=== PATIENT | male | born 1960 | race Caucasian/White ===

== ENCOUNTER 2022-07-02 06:30 | Day surgery (SDC) | payer OTHER ==
[~2022-07-02] VITALS: Ht 182.9 cm; Wt 92.0 kg
--- NOTE | 2022-07-02 08:32 | NUR ---
07/02/22 0832 Abbey Stark 0828- PT ARRIVES TO PACU AWAKE AND TALKING. PT REPORTS NO PAIN OR NAUSEA. RESP EVEN AND UNLABORED. OXYGEN SAT MID 90'S ON 2L VIA CO2 NC.
--- NOTE | 2022-07-02 15:44 | OR ---
[facility] [address] [place], [place] [address] Signed DATE OF OPERATION: 07/02/2022 SURGEON: Mallory Fleming MD PREOPERATIVE DIAGNOSIS: Colon screening. POSTOPERATIVE DIAGNOSES: 1. Extensive sigmoid and left-sided diverticulosis. 2. Small polyps of the ileocecal valve area (excised). 3. Flat polyp and adjacent small polyp of the rectosigmoid. PROCEDURES: Total colonoscopy to cecum with cold morcellation polypectomy x3 and mucosal lift, snare polypectomy x1. ANESTHESIA: Intravenous sedation; fentanyl 150 mcg and Versed 7 mg. INDICATION: This 62-year-old white man is a patient of Dr. Solange Mitchell and known to me from the past having undergone colonoscopy in 2011, which showed diverticulosis. He is asymptomatic and has been referred for screening colonoscopy on the basis of time interval since last colonoscopy. He understands the risks of bleeding, infection, and perforation related to colonoscopy and wished to proceed. FINDINGS: The prep was excellent. Complete colonoscopy was undertaken of the cecum. There were two small polyps, one in the cecum and the other at the ileocecal valve, which were excised with cold morcellation technique. In the rectosigmoid was a very subtle flat polyp with an adjacent small sessile polyp. Those were excised with cold morcellation technique as well as mucosal lift cold snare polypectomy technique. There were no other findings of concern other than the diverticula. PROCEDURE IN DETAIL: The patient was brought to the endoscopy suite and placed in lateral decubitus position. Given intravenous sedation to the point of slurred speech and nystagmus with full cardiopulmonary monitoring. Digital rectal examination showed a normal prostate. An Olympus video colonoscope was passed in the rectum and manipulated into the sigmoid, Electronically Signed By: MALLORY FLEMING MD 07/02/22 1544 PATIENT NAME: DONNA DELATORRE OPERATIVE REPORT DATE OF : 60 REPORT #: [id number] PHYSICIAN: MALLORY FLEMING MD PCP: SOLANGE MITCHELL MD REPORT IS CONFIDENTIAL AND NOT TO BE RELEASED WITHOUT AUTHORIZATION [facility] [address] [place], [place] [address] Signed which showed numerous diverticula. The scope was advanced through the colon ultimately intubating the cecum itself. On the ileocecal valve a small sessile polyp, most likely adenomatous given its mucosal appearance, this was excised with cold morcellation technique. Another small adjacent polyp was similarly excised. The scope was withdrawn from that point. Examination showed no sign of abnormality other than scattered diverticula and more dense diverticula of the left colon and sigmoid. At the rectosigmoid was a subtle flat polyp, narrow band imaging help define this more fully. A mucosal lift technique with spot tattoo dye was used to elevate the mucosa, which was not especially forthcoming. The polyp was then excised with cold snare technique with additional cold morcellation obliteration as well. The adjacent small polyp was excised with cold morcellation technique along. Scope was withdrawn. Retroflexed view showed no other abnormality. The patient was taken to the recovery room in good condition having suffered no complication. CONCLUDING DIAGNOSES: Three small polyps excised by cold morcellation technique and a flat polyp of rectosigmoid by mucosal lift technique. PLAN: Recommend repeat colonoscopy within 1-2 years based on the flat polyp finding and depending on pathology report. A high-fiber diet is recommended on the basis of his diverticulosis. He will return to the ongoing care of Dr. Mitchell otherwise. MD JAYY Cherry/TOML /[id number] cc: Solange Mitchell MD Copies: SOLANGE MITCHELL MD ~ Electronically Signed By: MALLORY FLEMING MD 07/02/22 1544 PATIENT NAME: DONNA DELATORRE OPERATIVE REPORT DATE OF : 60 REPORT #: [id number] PHYSICIAN: MALLORY FLEMING MD PCP: SOLANGE MITCHELL MD REPORT IS CONFIDENTIAL AND NOT TO BE RELEASED WITHOUT AUTHORIZATION
--- NOTE | 2022-07-04 15:52 | PATH ---
[facility] [address] [place], [place] [address] Signed SPECIMEN(S): A ILEOCECAL VALVE POLYP SPECIMEN(S): B RECTOSIGMOID POLYP SPECIMEN SOURCE: A. ILEOCECAL VALVE POLYP B. RECTOSIGMOID POLYP CLINICAL HISTORY: Surveillance colonoscopy. Post: Polyps rectosigmoid, ileocecal, and diverticulosis FINAL PATHOLOGIC DIAGNOSIS: A. Ileocecal valve polyp: - Benign polypoid colonic mucosa, negative for pathologic inflammation or dysplasia. B. Rectosigmoid polyp: - Tubular adenoma (multiple fragments). JVR:[facility]:C2NR MICROSCOPIC EXAMINATION: Histologic sections of all submitted blocks are examined by light microscopy. These findings, together with the gross examination, support the pathologic diagnosis. GROSS DESCRIPTION: Two specimens are received in two containers, labeled "Delatorre, Ja." A. The specimen, labeled " Delatorre, Ja, ileocecal valve polyp," is received in formalin and consists of seven rogers soft tissue fragment(s) that measure 0.1-0.4 cm in greatest dimension. The specimen is entirely submitted in cassette (A1). B. The specimen, labeled " Delatorre, Ja, rectal-sigmoid colon," is received in formalin and consists of multiple rogers soft tissue fragment(s) that measure 0.1-0.7 cm in greatest dimension. The specimen is entirely submitted in cassette (B1). FB (under the direct supervision of a pathologist) The Gross Description was prepared using a voice recognition system. The report was reviewed for accuracy; however, sound-alike word errors, addition and/or deletions may occur. If there is any question about this report, please contact Client Services. PERFORMING LABORATORY: PATIENT NAME: DONNA DELATORRE PATHOLOGY DATE OF : 60 REPORT #: [id number] PHYSICIAN: GERALDINE PATHOLOGY PCP: SOLANGE BARAJAS MD REPORT IS CONFIDENTIAL AND NOT TO BE RELEASED WITHOUT AUTHORIZATION [facility] [address] [facility] [place] [place] [address] Signed The technical component was performed by [email or web address], [address] [place] [id number] (CLIA# [id number]). Professional interpretation was performed by [facility] - [address] [address] (CLIA#: [id number]). Diagnostician: Chris Hawkins MD Pathologist Electronically Signed 07/04/2022 Copies: ~ PATIENT NAME: DONNA DELATORRE PATHOLOGY DATE OF : 60 REPORT #: [id number] PHYSICIAN: GERALDINE PATHOLOGY PCP: SOLANGE BARAJAS MD REPORT IS CONFIDENTIAL AND NOT TO BE RELEASED WITHOUT AUTHORIZATION
== END 2022-07-02 09:10 | disposition home or self-care (01) ==
LOC: OPS 06:30 → DS 06:30 → OPS 07:30
PROVIDERS: ATTEND Surgery
PROC: 0DBN8ZX Excision of Sigmoid Colon, Via Natural or Artificial Opening Endoscopic, Diagnostic (ICD-10-PCS; 2022-07-02)
PROC: 3E0H8GC Introduction of Other Therapeutic Substance into Lower GI, Via Natural or Artificial Opening Endoscopic (ICD-10-PCS; 2022-07-02)
PROC: 0DBH8ZX Excision of Cecum, Via Natural or Artificial Opening Endoscopic, Diagnostic (ICD-10-PCS; principal; 2022-07-02 07:30)
DX: Z12.11 Encounter for screening for malignant neoplasm of colon (principal); D12.0 Benign neoplasm of cecum; D12.7 Benign neoplasm of rectosigmoid junction; K57.30 Diverticulosis of large intestine without perforation or abscess without bleeding
CPT/HCPCS: 99153; G0500; J2250; J3010; J7121

== ENCOUNTER 2023-12-03 09:25 | Day surgery (SDC) | payer OTHER ==
[2023-11-26 16:21] VITALS: BP 149/92
[~2023-12-03] VITALS: Ht 182.9 cm; Wt 90.9 kg
[~2023-12-03 09:25] MED LIST: PROBIOTIC1 EAC2 PO
[2023-12-03 09:47] VITALS: BP 159/92
[2023-12-03] MEDS ORDERED: IBUPROFEN600 MG PO (14:08)
[2023-12-03] MEDS ORDERED: OXYCODON-ACETA1 EAC2 PO (14:08)
[2023-12-03] MEDS ORDERED: ACETAMINOPHEN500 MG PO (14:08)
--- NOTE | 2023-12-03 14:20 | NUR ---
12/03/23 1420 Isabell Mena 1352- PT ARRIVES TO PACU, SEMI FOLWER POSITION. O2 IN PLACE AT 6L PER MASK, PT NEEDS INTERMITTENT JAW THRUST TO MAINTAIN AIRWAY ON ARRIVAL. PT DOES REACT TO JAW THRUST BUT FALLS BACK TO SLEEP. DRESSING IN PLACE TO LEFT GROIN, ABD SOFT, NON DISTENDED. LR INFUSING TO LFA IV. WILL CONTINUE TO MONITOR. 1400- PT CONTINUES TO SLEEP WITH SNORING RESPIRATIONS. O2 REMAINS IN PLACE. INTERMITTENT AIRWAY SUPPORT, PT CONTINUES TO REACT TO JAW THRUST. 1413- PT WAKES AND OPENS EYES TO VERBAL AND TACTILE STIMULUS. DENIES PAIN OR NAUSEA. REORIENTED TO TIME AND PLACE. PT VISUALIZES SURGICAL SITE AND IS AMAZED IT IS DONE AND SO SMALL. PT ANSWERS QUESTIONS APPROPRIATELY. O2 SATS 100% ON 6L PER MASK, O2 TAKEN OFF AT THIS TIME. WILL CONTINUE TO MONITOR.
[2023-12-03 14:33] VITALS: BP 131/90
--- NOTE | 2023-12-03 14:44 | NUR ---
1430 PT ARRIVED FROM PACU TO DAY SURGERY VIA STRECHER. REPORT TAKEN FROM DEONTE Austin RN. VITALS TAKEN. PT AWAKE AND ORIENTED. BREATHING EQUAL AND UNLABORED. IVF INFUSING. SCDS ON. REPORTS NO NAUSEA. PAIN AT A TOLERABLE LEVEL FOR PT 02/08. SURGICAL SITE DRESSING CLEAN DRY AND INTACT. 1445 PT HAS AT BEDSIDE. CALL LIGHT WITHIN REACH. PT HAS CRACKERS, JELLO, PUDDING AND WATER AT BEDSIDE. BED LOW AND LOCKED.
[2023-12-03 15:28] VITALS: BP 128/88
--- NOTE | 2023-12-03 15:43 | NUR ---
1525 PT AWAKE AND ORIENTED. VITALS TAKEN. PT TOLERATED CRACKERS AND WATER. PT POST OP VOID 170 MLS. PT ABLE TO AMBULATE ON OWN. PT AT A TOLERABLE PAIN LEVEL OF 310. 1535 DISCHARGE INSTUCTIONS GIVEN. PT AND FAMILY VERBALIZED UNDERSTANDING AND HAVE NO FUTHER QUESTIONS. IV DISCONTINUED. PT LEFT DAY SURGERY VIA WHEELCHAIR TO IN CAR OUT FRONT.
--- NOTE | 2023-12-04 10:51 | OR ---
[facility] [address] [place], [place] [address] Signed DATE OF OPERATION: 12/03/2023 SURGEON: Mallory Fleming MD PREOPERATIVE DIAGNOSIS: Left inguinal hernia. POSTOPERATIVE DIAGNOSES: 1. Left indirect and direct inguinal hernia. 2. Large cord lipoma. PROCEDURES: 1. Repair of left inguinal hernia including excision of sac with high ligation and implantation of Prolene mesh underlay technique. 2. Excision of cord lipoma. ANESTHESIA: General endotracheal, Minoo Joan, FIELD CLINICAL ENGINEER and local 10 mL of 0.25% Marcaine with epinephrine. INDICATIONS FOR THE PROCEDURE: This 63-year-old white man is a patient of Dr. Solange Mitchell and is noted to have a left inguinal hernia, which is reducible. The testicle is normal. He is here to undergo left inguinal hernia repair. He understands the risk of bleeding, infection, and recurrence. FINDINGS: The cord itself was bulky, this was related to a relatively large cord lipoma as well as a moderate-sized indirect sac. Sac had no evidence of sliding component. Some omentum was noted within it, which was easily replaced into the abdominal cavity allowing for high ligation and excision of the sac. Additionally, there is a defect of the floor consistent with direct hernia. Repair consisted of implantation of Prolene mesh in the properitoneal space. Excision of the cord lipoma was accomplished as well as it was bulky and large. Cord structures were preserved. There were no complications. DESCRIPTION OF PROCEDURE: The patient was brought to the operating room, given a general endotracheal anesthetic. Preoperative antibiotic Ancef was given. Sequential compression device stockings used and heparin subcutaneously administered. The lower abdomen was prepared with a chlorhexidine solution after clipping. A small incision was made cephalad to the pubic Electronically Signed By: MALLORY FLEMING MD 12/04/23 1051 PATIENT NAME: DONNA DELATORRE OPERATIVE REPORT DATE OF : 60 REPORT #: [id number] PHYSICIAN: MALLORY FLEMING MD PCP: SOLANGE MITCHELL MD REPORT IS CONFIDENTIAL AND NOT TO BE RELEASED WITHOUT AUTHORIZATION [facility] [address] [place], [place] [address] Signed tubercle. Dissection was carried through the subcutaneous tissue with electrocautery. Immediately noted was a bulky edematous hernia sac. This was dissected free from the surrounding soft tissue. Complete attenuation of the external oblique fibers was noted. Only a small portion of the external oblique was incised laterally. The cord was mobilized from the floor with blunt electrocautery dissection and encircled with a Aydlett drain. Examination of the floor of the inguinal canal showed a direct hernia, but the bulk of the cord suggested an indirect component as well. On that basis, the cremasteric muscle fibers of the cord were incised transversely ultimately revealing a relatively large cord lipoma in the lateral aspect, which was dissected free to its origin, ligated at its base and tied with 2-0 Vicryl ties and amputated and passed for Pathology. This allowed for further dissection of the cord, which showed an indirect hernia sac, which was moderate in size. This was dissected free as well. Once completely isolated from the cord structures, it was opened and inspected internally. There was some omentum within it, which was easily replaced in the abdominal cavity. There was no sign of incarceration and no sign of sliding component. Under direct visualization, the neck of the sac was ligated with 2-0 silk sutures and redundant sac amputated and passed for Pathology. An Allis clamp was applied to the tendon of the transversus abdominis allowing for tension on the transversalis muscle as there was a direct defect noted there. The floor was incised with electrocautery and the properitoneal space bluntly . The segment of Prolene mesh was cut to an elliptical configuration and secured in an underlay technique with interrupted 2-0 Prolene sutures. A defect was cut in the graft to accommodate the cord and the tails of the graft were secured laterally with extreme care, not entirely encircling the cord, but certainly obliterating the space and potential space for reherniation. A 10 mL of 0.25% Marcaine with epinephrine injected locally. Irrigation was undertaken affirming no evidence of bleeding or other problem. The external oblique was not reapproximated over the cord structures as it was attenuated and of no real substance. The Jadon layer was reapproximated with interrupted 2-0 Vicryl. The skin closed with running subcuticular 3-0 Vicryl. Steri-Strips were applied as was an Acticoat dressing. He was ultimately extubated and transferred to the recovery room in good condition having suffered no complications. Sponge, needle, and instrument counts were reported as correct x3. MD JAYY Cherry/MODL /[id number] Electronically Signed By: MALLORY FLEMING MD 12/04/23 1051 PATIENT NAME: DONNA DELATORRE OPERATIVE REPORT DATE OF : 60 REPORT #: [id number] PHYSICIAN: MALLORY FLEMING MD PCP: SOLANGE MITCHELL MD REPORT IS CONFIDENTIAL AND NOT TO BE RELEASED WITHOUT AUTHORIZATION [facility] [address] [place], [place] [address] Signed cc: Solange Mitchell MD Copies: SOLANGE MITCHELL MD ~ Electronically Signed By: MALLORY FLEMING MD 12/04/23 1051 PATIENT NAME: DONNA DELATORRE OPERATIVE REPORT DATE OF : 60 REPORT #: [id number] PHYSICIAN: MALLORY FLEMING MD PCP: SOLANGE MITCHELL MD REPORT IS CONFIDENTIAL AND NOT TO BE RELEASED WITHOUT AUTHORIZATION
--- NOTE | 2023-12-05 15:01 | PATH ---
[facility] [address] [facility] [place], [place] [address] Signed SPECIMEN(S): A LEFT INDIRECT HERNIA SAC SPECIMEN(S): B LIPOMA OF CORD SPECIMEN SOURCE: A. LEFT INDIRECT HERNIA SAC B. LIPOMA OF CORD CLINICAL HISTORY: Left inguinal hernia. FINAL PATHOLOGIC DIAGNOSIS: A. Left indirect hernia sac: - Mesothelial-lined fibrofatty tissue with congestion and mild chronic inflammation consistent with hernia sac. B. Lipoma of cord: - Mature fatty tissue consistent with lipoma. NA:smn MICROSCOPIC EXAMINATION: Histologic sections of all submitted blocks are examined by light microscopy. These findings, together with the gross examination, support the pathologic diagnosis. GROSS DESCRIPTION: A. The specimen, labeled and designated "Michelle, left indirect hernia sac," is received in formalin and consists of irregular shaped fibromembranous tissue fragment that measure 3.0 x 2.0 x 0.8 cm. The outside surface is violaceous, focally congested. Sectioning through the specimen is grossly unremarkable. Cafeteria Helper sections are submitted in (A1). B. The specimen, labeled and designated "Michelle, lipoma of cord," is received in formalin and consists of yellow-rogers, soft, lobulated fibroadipose tissue fragment that measure 7.8 x 4.2 x 1.7 cm. Sectioning through the specimen reveals regular adipose tissue. No abnormalities are grossly identified. Cafeteria Helper sections are submitted in (B1-B2). JS (under the direct supervision of a pathologist) The Gross Description was prepared using a voice recognition system. The report was reviewed for accuracy; however, sound-alike word errors, addition and/or deletions may occur. If there is any PATIENT NAME: DONNA DELATORRE PATHOLOGY DATE OF : 60 REPORT #: [id number] PHYSICIAN: GERALDINE CABRAL PCP: SOLANGE BARAJAS MD REPORT IS CONFIDENTIAL AND NOT TO BE RELEASED WITHOUT AUTHORIZATION [facility] [address] [place] [address] Signed question about this report, please contact Client Services. PERFORMING LABORATORY: Technical component was performed by [facility], [address] [place] [address] (CLIA# [id number]). Professional interpretation was performed by [facility], [address] [place] [address] (CLIA# [id number]). Diagnostician: Otis Sharif MD Pathologist Electronically Signed 12/05/2023 Copies: ~ PATIENT NAME: DONNA DELATORRE PATHOLOGY DATE OF : 60 REPORT #: [id number] PHYSICIAN: GERALDINE CABRAL PCP: SOLANGE BARAJAS MD REPORT IS CONFIDENTIAL AND NOT TO BE RELEASED WITHOUT AUTHORIZATION
== END 2023-12-03 15:35 | disposition home or self-care (01) ==
LOC: DS 09:25
PROVIDERS: ATTEND Surgery
PROC: 0VBG0ZZ Excision of Left Spermatic Cord, Open Approach (ICD-10-PCS; 2023-12-03)
PROC: 0YQ60ZZ Repair Left Inguinal Region, Open Approach (ICD-10-PCS; principal; 2023-12-03 11:00)
DX: K40.90 Unilateral inguinal hernia, without obstruction or gangrene, not specified as recurrent (principal); D17.79 Benign lipomatous neoplasm of other sites
CPT/HCPCS: 00830; C1781; J0131; J0690; J1100; J1644; J1885; J2250; J2405; J2704; J3475; J3490; J7121